=== PATIENT | female | born 1990 | race Caucasian/White ===

== ENCOUNTER 2016-06-03 23:12 | Emergency (ER) | payer SELFPAY ==
[~2016-06-03] VITALS: Ht 165.1 cm; Wt 77.3 kg
[~2016-06-03 23:12] MED LIST: ADV250 IH; ALBU17AE27 IH
[2016-06-03] MEDS ORDERED: IPRATROPIUM BROMIDE 0.5 MG/2.5 ML NEB SOLUTION NEB ONE (23:15)
[2016-06-03] MEDS ORDERED: ALBUTEROL SULFATE 5 MG/ML 20 ML NEB SOLN [BULK] NEB ONE (23:15)
[2016-06-03] MEDS ORDERED: 0.9% SODIUM CHLORIDE 15 ML NEB SOLUTION NEB ONE (23:22)
[2016-06-03] MEDS ORDERED: MethylPREDNISolone SOD SUCC 125 MG/2 ML VIAL IM ONE (23:30)
[2016-06-04 00:45] VITALS: BP 122/82
[2016-06-04] MEDS ORDERED: ALBUTEROL SULFATE HFA 90 MCG/PUFF 8 GM INHALER IH ONE (00:45)
== END 2016-06-04 00:46 | disposition home or self-care (01) ==
LOC: EMS 23:14
DX: J45.909 Unspecified asthma, uncomplicated (principal)
CPT/HCPCS: 94644; 96372; 99285; J2930; J7611; J3535